=== PATIENT | male | born 1955 | race Caucasian/White ===

== ENCOUNTER 2024-10-02 14:41 | Outpatient (RCR) | payer MEDICARE, SELFPAY | END 2024-10-02 23:59 | disposition home or self-care (01) | LOC: RPT 14:41 | DX: H81.12 Benign paroxysmal vertigo, left ear (principal); Z73.6 Limitation of activities due to disability | CPT/HCPCS: 97112; 97162 ==

== ENCOUNTER 2024-10-04 15:54 | Observation (INO) | payer MEDICARE, SELFPAY ==
[2024-10-04] VITALS (11 sets, daily range): BP systolic 123–165; BP diastolic 70–87; PULSE 70–79; BMI 32.5; BMI 31.5
--- NOTE | 2024-10-04 08:45 | ED.GENMED ---
History of Present Illness
General
Chief Complaint: Dizziness
Source: patient
Exam Limitations: none
Time Seen by Provider: 10/04/24 08:44
Nursing documentation reviewed up to this point in time: agreed with
History of Present Illness
History of Present Illness:
Patient is a 69-year-old male with history of hypertension asthma now who presents to the ER for evaluation. On Tuesday several days ago patient noticed he had room spinning sensation when he was laying down however when he stood up it went away.
He notices more when he was on his left side. He recently moved from [place] and therefore does not have a family doctor. He saw the family practice clinic on Tuesday and diagnosed with vertigo. He was able to get an appointment physical
therapy and saw them on Tuesday, yesterday however they were not able to elicit any vertigo symptoms.
Patient reports this morning he woke up with room spinning sensation at 4 am however also feels generally dizzy. also reports she was concerned because he had vertigo today while just sitting still and not moving.
Patient is not on blood thinners. He denies any recent trauma.
Review of Systems
Review of Systems
Allergies reviewed?: Yes
Other source history: family
All Other Systems: ROS reviewed and negative except as documented in HPI and ROS
Constitutional: Reports no symptoms; Denies fever, fatigue or chills
EENT: Reports no symptoms
Respiratory: Reports no symptoms
Cardiac: Reports no symptoms
ABD/GI: Denies nausea or vomiting
Musculoskeletal: Reports no symptoms
Skin: Reports no symptoms
Neurological: Reports dizzy
Psychiatric: Reports no symptoms
Phy Exam
General Physical Exam
General Presentation: no apparent distress
General age: appears stated age
General Skin: warm and dry
General Habitus: normal
General Mental: alert
General Hydration: appears well hydrated
Eye Exam
Eye Exam: PERRL, EOMI and other (No nystagmus bilaterally)
Eye Exam General: PERRL: bilateral and EOM intact: bilateral
Pupil Exam: Bilateral: round and reactive
Cardiovascular Exam
Cardiovascular Exam: regular rate/rhythm, no murmur and normal peripheral pulses
Pulmonary Exam
Pulmonary Exam: lungs clear and no respiratory distress
Neurological Exam
Neurological Exam: alert and oriented x3
Musculoskeletal Exam
Musculoskeletal Exam: full ROM
Skin Exam
Skin Exam: normal color and warm/dry
Psychiatric Exam
Psychiatric Exam: normal mood/affect
Course
Orders/Labs/Results
Orders:
Orders
10/04/24 08:22
Electrocardiogram (*1) Urgent
Reason for Study: Fatigue / Weakness
EKG- Treatment ONCE
10/04/24 09:01
Cardiac Monitoring- Treatment ONCE
IV Insert/Care/Rem.- Treatment PRN
0.9% Sodium Chloride 1000 ml [Nss] 1,000 ml IV BOLUS
10/04/24 09:04
Complete Blood Count/With Diff Urgent
Comprehensive Metabolic Panel Urgent
10/04/24 09:17
CT Head W/o Iv Contrast Urgent
Comment:
Reason For Exam: vertigo
10/04/24 11:49
MRI Brain [MR Brain Without Contrast] Routine
Comment:
Reason For Exam: vertigo
OK for patient to be off Cardiac Monitoring for MRI: No
Recent pill cam endoscopy?: No
10/04/24 15:31
Echo 2D MMode Color/Doppler Routine
Reason for Study: dizzy
Troponin I Stat
Abnormal Lab Results
10/04/24
09:04
MPV 11.3 H fL
(7.4-10.4)
Eosinophils % 8.9 H %
(0-6)
Glucose 138 H mg/dl
(70-99)
Total Bilirubin 1.6 H mg/dl
(0.2-1.3)
10/04/24 09:04
10/04/24 09:04
Vital Signs
Initial and Last Documented VS:
Initial Vital Signs
Temp Pulse Resp BP Pulse Ox
97.5 F 40 16 165/80 98
10/04/24 08:27 10/04/24 08:27 10/04/24 08:27 10/04/24 08:27 10/04/24 08:27
Last Documented Vital Signs
Temp Pulse Resp BP Pulse Ox
97.5 F 67 9 139/78 96
10/04/24 08:27 10/04/24 15:15 10/04/24 15:15 10/04/24 15:00 10/04/24 15:15
Junior Recruiter consulted with Physician
Junior Recruiter consulted with physician?: Yes
Name of Physician Consulted: David
MDM/Problems Addressed
Differential Diagnosis Includes:
Not limited to dizziness, vertigo, stroke
MDM/Problems Addressed:
Patient is a 69-year-old male with hypertension history presenting with intermittent episodes of vertigo however today felt also a vague dizziness and had vertigo today while sitting still and not moving. Patient did see family practice clinic and
had an outpatient physical therapy from yesterday they could not elicit vertigo at that time. He presents awake alert no acute distress he did not need any medications for vertigo here in the ER. CAT scan with no acute findings CAT scan does
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
Case reviewed with admitting hospitalist who recommended MRI and possible discharge. Case reviewed with neurology DR Albarran who ordered MRI which was neg.
While patient was here he still has felt what he describes as a different type of dizziness with ambulating. He has had frequent PVCs and at times has had episodes of bigeminy. With persistent dizziness would recommend admission. I did review
this with admitting hospitalist. He did receive fluids however despite fluids still feels dizzy.
*Radiology
Radiology exam reviewed: radiology read reviewed
*Pulse Oximetry
Patient hypoxic: no
*EKG
Interpreted by ED Provider?: Yes
Heart Rate: 66
Rate: normal
Rhythm: sinus
Ischemia: non-specific ST changes
*Critical Care Note
Total Time (30-74mins, 75-104mins- exclusive of procedures): Not Applicable
Patient Management
Discussion with other providers: Pulp Drier Firer (neuro DR Albarran )
ED Attending Note
-
Portions of this chart may have been created with voice recognition software.� Occasional wrong word or��sound alike� substitutions may have occurred due to the inherent limitations of voice recognition software.
Discharge Plan
Departure
Patient Disposition: Admit
Date of Disposition: 10/04/24
Time of Disposition: 10:51
Admit to: Med/Surg
Admit to doctor: hospitalist
Presentation/result/management discussed w/ accepting MD/DO: Hospitalist
Patient with high blood pressure during this ER visit?: Yes
Condition: Fair
Covid-19: Not Applicable
Discharge Problem:
Dizziness
Prescriptions:
No Action
polyethylene glycol 3350 [Miralax] 17 gram Powder In Packet
17 g PO DAILY
aspirin 325 mg Tablet
325 mg PO DAILYPRN PRN (Reason: headaches)
pravastatin 40 mg Tablet
40 mg PO QPM
Theragen Tablet
1 tab PO DAILY
amlodipine [Norvasc] 5 mg Tablet
5 mg PO DAILY
ascorbic acid (vitamin C) [Vitamin C] 500 mg Tablet
500 mg PO DAILY
ranitidine HCl 150 mg Tablet
150 mg PO Q48H
albuterol sulfate [ProAir HFA] 90 mcg/actuation Hfa Aerosol Inhaler
2 puff INHALATION R Q6HPRN PRN (Reason: sob)
lisinopril 40 mg Tablet
40 mg PO DAILY
esomeprazole magnesium [Nexium] 20 mg Capsule,Delayed Release(Dr/Ec)
20 mg PO Q48H
alfuzosin 10 mg Tablet Extended Release 24 Hr
10 mg PO QPM
Visbiome 112.5 billion cell Capsule
1 cap PO DAILY
Arnuity Ellipta 100 mcg/actuation Blister With Device
1 inh INHALATION R Q48H
Budesonide 0.5mg/Saline
2 spray intranasal DAILY
Referrals:
Donny Martinez MD, Resident [Family Provider] -
Interventions
Interventions:
*Risk Screen - Suicide Last Done: 10/04/24 08:27
*General Assessment Last Done: 10/04/24 09:01
*Neglect/Abuse Screening Last Done: 10/04/24 08:27
ED- Fall Risk Assessment Last Done: 10/04/24 09:38
*ED COVID-19 Vaccine History Last Done: 10/04/24 09:01
ED- Neurological Assessment Last Done: 10/04/24 10:39
ED- Cardiac Assessment Last Done: 10/04/24 09:38
ED Swallowing Screen Last Done: 10/04/24 09:38
Discharge Date and Time
Print Language: [place]
[2024-10-04] MEDS: NSS 1000 IV (09:03)
[2024-10-04 09:13] LABS: % Basophils 1.2 % (0-2); % Eosinophils 8.9 % (0-6); % Immature Granulocytes 0.2 % (0-0.5); % Lymphocytes 28.7 % (20.5-51.1); % Monocytes 9.3 % (1.7-9.3); % Neutrophils 51.7 % (42.2-75.2); Absolute Basophils 0.1 10^3/uL (0-0.2); Absolute Eosinophils 0.4 10^3/uL (0-0.7); Absolute Lymphocytes 1.4 10^3/uL (1.2-3.4); Absolute Monocytes 0.5 10^3/uL (0.1-0.6); Absolute Neutrophils 2.5 10^3/uL (1.4-6.5); Hematocrit 42.6 % (39.0-52.0); Mean Corp Hgb Conc. 35.2 g/dL (33.0-37.0); Mean Corpuscular Hgb 30.2 pg (27.0-31.0); Mean Corpuscular Volume 85.9 fL (80.0-94.0); Mean Platelet Volume 11.3 fL (7.4-10.4); Nucleated Red Blood Cells % 0 % (-); Platelet Count 186 10^3/uL (130-400); Red Blood Cell Count 4.96 10^6/uL (4.70-6.10); Red Cell Dist. Width 12.8 % (11.5-14.5); White Blood Cell Count 4.8 10^3/uL (4.8-10.8)
[2024-10-04 09:55] LABS: ALT (SGPT) 32 U/L (0-50); AST (SGOT) 31 U/L (17-59); Albumin 4.5 g/dl (3.5-5.0); Alkaline Phosphatase 49 U/L (38-126); Blood Urea Nitrogen 19 mg/dl (9-20); Calcium 9.6 mg/dl (8.4-10.2); Carbon Dioxide 25 mmol/L (22-30); Chloride 105 mmol/L (98-107); Estimated Creatinine Clearance 112 ml/min; Glucose 138 mg/dl (70-99); Potassium 4.5 mmol/L (3.5-5.1); Sodium 138 mmol/L (135-145); Total Bilirubin 1.6 mg/dl (0.2-1.3); Total Protein 6.8 g/dl (6.3-8.2); eGFR > 60.00
--- NOTE | 2024-10-04 11:40 | CON.NEURO ---
Consultation
Order
Date of Consultation: 10/04/24
Requesting Provider: Thuy Huynh
Reason for Consult: dizziness
Neurology Consultation Note.
HPI: This is a 69-year-old man who presented to [facility] on 10/04/2024 with dizziness. According to the patient he developed intermittent vertigo, worse with turning to left on September 30.
He was seen by PT on 10/02/2024
Mr. Jeffery states that he fell backwards on the bed after he got up and developed vertigo in the morning prompting him to seek medical care. No reports nausea, vomiting, clumsiness, dysarthria or dysphagia, motor visual sensory changes, tinnitus or
ear pain..
Patient has a chronic nasal congestion/sinus headache and uses budesonide and aspirin for.
Mr. Jeffery recalls a severe headache and dysarthria that he developed post sinus surgery at the age of 17. He is not sure what was the etiology of the event.
ER VS: 165/80, heart rate�40?, afebrile
EKG: NSR, QTc Int : 408 ms
Labs: Glucose�138, bilirubin�1.6, normal WBCs, platelets.
PDMP:none
CT head wo contrast-left frontal hypodensity, atrophy.
PMH: HTN, DLP, IGT, GERD, BMI 32, BPH, orthostatic hypotension
PSH:TUR sinus surgeries, P, tonsillectomy, bilateral cataract surgery, BL TKA, left foot neuroma resection, left shoulder arthroscopy
SH: , retired, drinks wine, independent in [place].
FH: Father had a stroke at the age of 56,
All: HMG�Co. a reductase inhibitors
ROS:Constitutional: Negative. Negative for chills, fever and unexpected weight change.
HENT: Positive for vertigo
Eyes: Negative. Negative for photophobia, pain and visual disturbance.
Respiratory: Negative for cough, choking and shortness of breath.
Cardiovascular: Negative for chest pain, palpitations and leg swelling.
Gastrointestinal: Negative for abdominal pain and vomiting.
Endocrine: Negative. Negative for cold intolerance.
Musculoskeletal: Negative for back pain, gait problem, neck pain and neck stiffness.
Skin: Negative for rash.
Allergic/Immunologic: Negative. Negative for immunocompromised state.
Neurological: Positive for chronic headache, imbalance
Psychiatric/Behavioral: Negative for behavioral problems, confusion and hallucinations.
General: Well developed. In no acute distress.
Cardio: Regular rate and rhythm without murmur. Extremities are without cyanosis or edema.
Neuro:
Mental Status: Alert, oriented to person, place, and date. Normal attention and recall. Good fund of knowledge. Follows complex requests across the midline. Comprehension, naming, and repetition intact. Immediate and delayed recall 3/3.
Cranial Nerves: . Pupils are equally round, surgical. EOMs full. Visual huitron full to confrontation. No ptosis. No nystagmus. V1-V3 intact to light touch and pinprick bilaterally, symmetric. Face symmetric. Mildly impaired hearing AU. The
palate elevated well. SCMs and traps 5/5. Tongue midline. No dysarthria.
Motor: Normal bulk and tone. No pronator or arm drift. Strength 5/5 throughout. No clonus.
Reflexes: 3+ throughout the upper extremities and knees. Plantar responses flexor bilaterally. Negative clonus bilaterally
Sensory: Normal vibration at the toes
Coordination: No dysmetria or tremor.
Gait: deferred
Bilateral pes cavus and hammertoes
Assessment and Plan:
I. BPPV
II.Left frontal hypodensity. Differential diagnosis includes vascular, post infectious
III. Chronic sinus headache.
-Continue Telemetry monitoring.
-Please obtain orthostatic vital signs
-ASA 81 mg QD
-Brain MRI without april
-CTA head and neck
-Meclizine 25 mg every 8 hours as needed
-PT
-DVT prophylaxis.
I personally reviewed all radiology and labs along with past medical records pertinent to current medical problems. Total time spent in patient care is 60 minutes.
Thank you for allowing us to participate in the care of this patient. We will continue to follow. Please do not hesitate to contact us with any questions or concerns.
Subjective/Objective
Subjective Data
Date of Service: October 04, 2024
Objective Data
Vital Signs
Temp Pulse Resp BP Pulse Ox
36.4 C 66 8 162/80 96
10/04/24 08:27 10/04/24 10:00 10/04/24 10:00 10/04/24 10:00 10/04/24 10:00
Lab Results
10/04/24 09:04
10/04/24 09:04
Sodium 138 mmol/L (135-145) 10/04/24 09:04
Potassium 4.5 mmol/L (3.5-5.1) 10/04/24 09:04
BUN 19 mg/dl (9-20) 10/04/24 09:04
Glucose 138 mg/dl (70-99) H 10/04/24 09:04
Calcium 9.6 mg/dl (8.4-10.2) 10/04/24 09:04
Patient Allergies
rubber, unspecified Allergy (Verified 10/04/24 08:32)
Unknown
Xgektzt-XIM-PcN Reductase Inhibitor Allergy (Verified 10/04/24 08:32)
Unknown
Medications
-
Home Medications
�Medication �Instructions �Recorded
Budesonide 0.5mg/Saline 2 spray intranasal DAILY 10/04/24
Lactobac no.2-Bifidobac no.1-S. 1 cap PO DAILY 10/04/24
thermo 112.5 billion cell capsule
(Visbiome)
albuterol sulfate 90 mcg/actuation 2 puff inhalation R Q6HPRN PRN sob 10/04/24
aerosol inhaler
alfuzosin 10 mg tablet,extended 10 mg PO QPM 10/04/24
release 24 hr
amlodipine 5 mg tablet (Norvasc) 5 mg PO DAILY 10/04/24
ascorbic acid (vitamin C) 500 mg 500 mg PO DAILY 10/04/24
tablet (Vitamin C)
aspirin 325 mg tablet 325 mg PO DAILYPRN PRN headaches 10/04/24
esomeprazole magnesium 20 mg 20 mg PO Q48H 10/04/24
capsule,delayed release (Nexium)
fluticasone furoate 100 1 inh inhalation R Q48H 10/04/24
mcg/actuation blister powder for
inhalation (Arnuity Ellipta)
lisinopril 40 mg tablet 40 mg PO DAILY 10/04/24
polyethylene glycol 3350 17 gram 17 g PO DAILY 10/04/24
oral powder packet (Miralax)
pravastatin 40 mg tablet 40 mg PO QPM 10/04/24
ranitidine HCl 150 mg tablet 150 mg PO Q48H 10/04/24
therapeutic multivitamin 1 tab PO DAILY 10/04/24
Vital Signs and Labs
-
Vital Signs and Labs:
Vital Signs
Temp Pulse Resp BP Pulse Ox
36.4 C 66 13 162/80 91
10/04/24 08:27 10/04/24 12:15 10/04/24 12:15 10/04/24 10:00 10/04/24 12:15
Lab Results
10/04/24 09:04
10/04/24 09:04
Sodium 138 mmol/L (135-145) 10/04/24 09:04
Potassium 4.5 mmol/L (3.5-5.1) 10/04/24 09:04
BUN 19 mg/dl (9-20) 10/04/24 09:04
Glucose 138 mg/dl (70-99) H 10/04/24 09:04
Calcium 9.6 mg/dl (8.4-10.2) 10/04/24 09:04
Home Medications
-
Home Medications
Budesonide 0.5mg/Saline 2 spray intranasal DAILY 10/04/24
Lactobac no.2-Bifidobac no.1-S. thermo 112.5 billion cell capsule (Visbiome) 1 cap PO DAILY 10/04/24
albuterol sulfate 90 mcg/actuation aerosol inhaler 2 puff inhalation R Q6HPRN PRN sob 10/04/24
alfuzosin 10 mg tablet,extended release 24 hr 10 mg PO QPM 10/04/24
amlodipine 5 mg tablet (Norvasc) 5 mg PO DAILY 10/04/24
ascorbic acid (vitamin C) 500 mg tablet (Vitamin C) 500 mg PO DAILY 10/04/24
aspirin 325 mg tablet 325 mg PO DAILYPRN PRN headaches 10/04/24
esomeprazole magnesium 20 mg capsule,delayed release (Nexium) 20 mg PO Q48H 10/04/24
fluticasone furoate 100 mcg/actuation blister powder for inhalation (Arnuity Ellipta) 1 inh inhalation R Q48H 10/04/24
lisinopril 40 mg tablet 40 mg PO DAILY 10/04/24
polyethylene glycol 3350 17 gram oral powder packet (Miralax) 17 g PO DAILY 10/04/24
pravastatin 40 mg tablet 40 mg PO QPM 10/04/24
ranitidine HCl 150 mg tablet 150 mg PO Q48H 10/04/24
therapeutic multivitamin 1 tab PO DAILY 10/04/24
--- NOTE | 2024-10-04 15:13 | HPS.HSE ---
Family Physician
-
Family Physician: Donny Martinez MD, Resident
Chief Complaint
-
vertigo
History of Present Illness
69-year-old man with PMH fot HTN, CVA, HLD,GERD, asthma who presented with dizzy and vertigo. he stated the room was spinning. he was evaluated by [facility] on Tuesday. he was asked to follow up with PT. HE saw PT on Tuesday.all workup
were negative. he felt fine on Tuesday and Tuesday. today he walk with dizzy and vertigo. he felt like the room was flipping. patient was off balance. he was unsteady on his feet. Patient complained of slight frontal headache. Denies any
syncopal episode patient denied any fever, chills, chest pain, short of breath. Patient denied any abdominal pain, nausea, vomiting or diarrhea. Patient denied dysuria materia.
Head CT and MRI negative. Admitting for further management
Medical History
Past Medical History
Past Medical History: Reports Other
Additional Past Medical History:
Hypertension
Hyperlipidemia
Asthma
BPH
Chronic sinus congestion
Cataracts
Low back pain
Past Surgical History: Reports Other
Additional Past Surgical History:
Surgical resection of prostate
Left shoulder surgery
another knee replacement
Bilateral catheter removal
Removal of neuroma from left foot y
Social History
Tobacco: Non-smoker
Alcohol: Occasional
Drug: None
Personal:
Living: With Family
Family History
Family History: Not pertinent
Allergies / Home Medications
Allergies reflects when Allergies were last updated in [facility].
Home Medications with original date entered in [facility]
Allergy/Medication List:
Allergies
Allergy/AdvReac Type Severity Reaction Status Date / Time
rubber, unspecified Allergy Unknown Verified 10/04/24 08:32
Gysioyx-MSV-MfA Reductase Allergy Unknown Verified 10/04/24 08:32
Inhibitor
Home Medications
Budesonide 0.5mg/Saline 2 spray intranasal DAILY 10/04/24
Lactobac no.2-Bifidobac no.1-S. thermo 112.5 billion cell capsule (Visbiome) 1 cap PO DAILY 10/04/24
albuterol sulfate 90 mcg/actuation aerosol inhaler 2 puff inhalation R Q6HPRN PRN sob 10/04/24
alfuzosin 10 mg tablet,extended release 24 hr 10 mg PO QPM 10/04/24
amlodipine 5 mg tablet (Norvasc) 5 mg PO DAILY 10/04/24
ascorbic acid (vitamin C) 500 mg tablet (Vitamin C) 500 mg PO DAILY 10/04/24
aspirin 325 mg tablet 325 mg PO DAILYPRN PRN headaches 10/04/24
esomeprazole magnesium 20 mg capsule,delayed release (Nexium) 20 mg PO Q48H 10/04/24
fluticasone furoate 100 mcg/actuation blister powder for inhalation (Arnuity Ellipta) 1 inh inhalation R Q48H 10/04/24
lisinopril 40 mg tablet 40 mg PO DAILY 10/04/24
polyethylene glycol 3350 17 gram oral powder packet (Miralax) 17 g PO DAILY 10/04/24
pravastatin 40 mg tablet 40 mg PO QPM 10/04/24
ranitidine HCl 150 mg tablet 150 mg PO Q48H 10/04/24
therapeutic multivitamin 1 tab PO DAILY 10/04/24
Review of Systems
-
Constitutional: Reports No Symptoms
EENT: Reports No Symptoms
Respiratory: Reports No Symptoms
Cardiac: Reports No Symptoms
Abdomen/GI: Reports No Symptoms
: Reports No Symptoms
Musculoskeletal: Reports No Symptoms
Skin: Reports No Symptoms
Neurological: Reports Dizzy
Endocrine: Reports No Symptoms
Hematologic/Lymphatic: Reports No Symptoms
Psych: Reports No Symptoms
Physical Exam
Vital Signs
Vital Signs
Temp Pulse Resp BP Pulse Ox
97.5 F 66 13 162/80 91
10/04/24 08:27 10/04/24 12:15 10/04/24 12:15 10/04/24 10:00 10/04/24 12:15
Physical Exam
General: Well Developed, Well Nourished and No Apparent Distress
HEENT: NormoCephalic, Moist mucous membranes and Atraumatic
Respiratory: Clear
Cardiac: S1/S2 and Regular Rhythm; No Murmur or Rub
GI: Soft, Non Tender, Non Distended and Normal Bowel Sounds; No Organomegaly
Rectal: Deferred by Provider
Musculoskeletal: No Clubbing, No Cyanosis and No Edema
Skin: No Rash
Neuro: AO x 3 and Nonfocal/grossly intact
Psych: Calm
Laboratory Results
-
10/04/24 09:04
10/04/24 09:04
Laboratory Results
Total Bilirubin 1.6 mg/dl (0.2-1.3) H 10/04/24 09:04
AST 31 U/L (17-59) 10/04/24 09:04
ALT 32 U/L (0-50) 10/04/24 09:04
Alkaline Phosphatase 49 U/L (38-126) 10/04/24 09:04
Data Reviewed
-
Diagnostic Radiology: Report Reviewed by me
CT Scan: Report Reviewed by me
Lab Data: Labs Reviewed by me
Impression/Plan
-
vertigo/dizzy
-PT/OT
-meclizine prn for vertigo
-brain MRI with No acute intracranial abnormality noted.
-CT with likely small old left fontal lobe infract.
-EKG with sinus rhythm with PVCs
-Will obtain echo and troponin
-Monitor orthostatics
# History of asthma
-Patient not in acute exacerbation
-Albuterol continued
-Breo continued
# BPH
-Alfuzosin continued
# Essential hypertension
-Norvasc, lisinopril continued with hold parameters
# GERD
-PPI continued
# Hyperlipidemia
-Statin continued
#DVT prophylaxis
-Lovenox subcu
# CODE STATUS
-Full code
--- NOTE | 2024-10-04 15:22 | W.PN.UPDATE ---
Update Note
Progress Note Update
This is an addendum to H&P written by SEED YEAST OPERATOR Lily Garner
I saw and examined the patient.
The SEED YEAST OPERATOR's note was reviewed and I agree with the note.
Comment:
Mr. Soren Jeffery is a 69 yo man with hx asthma, essential HTN, [facility] and diagnosed with BPPV presents to the ER this morning with return of significant Vertigo symptoms. Patient was seen by PT yesterday and did not
have symptoms of Vertigo.
Triage vitals significant for hypertension, labs essentially unremarkable.
EKG: sinus rhythm with PVC's
Head CT
IMPRESSION:
Likely small old left frontal lobe infarct.
No acute intracranial abnormality
MRI
IMPRESSION:
No acute intracranial abnormality noted.
Vertigo
BPPV
-MRI shows no stroke.
-suspect current dizziness is related to lingering symptoms of Vertigo. Patient and do not feel safe going home this evening.
-admit to observation for Vestibular PT/OT
-Meclizine PRN
Frequent PVC's
-doubt related to current symptoms of dizziness
-will obtain TTE and obtain Troponin
-refer to cardiology on discharge
Essential HTN
HLD
GERD
Asthma
-continue home medication regimen
[2024-10-04 16:10] LABS: Troponin I 0.021 ng/ml
[2024-10-04] MEDS: LOVENOX 40 MG SC (18:36)
[2024-10-04] MEDS: FLOMAX 0.4 MG PO (18:36)
--- NOTE | 2024-10-04 18:40 | PTCARENOTE ---
pt presents from ED via stretcher. pt is AAO*3, Vss, room air. pt c/o slight dizziness. Ortho BP done. pt denies any pain. pt is oriented to the room. call quarles within the reach. plan of care ongoing.
[2024-10-04] MEDS: FLOVENT 44 MCG INHALER 2 PUFF INH (19:40)
[2024-10-04] MEDS: ProAIR HFA INHALER 2 PUFF INH (19:42)
[2024-10-04] MEDS: PEPCID 20 MG PO (20:32)
[2024-10-04] MEDS: ANTIVERT 25 MG PO (20:32)
[2024-10-04] MEDS: PRAVACHOL 40 MG PO (20:34)
[2024-10-05] VITALS (8 sets, daily range): BP systolic 115–159; BP diastolic 65–100; PULSE 40–81; O2SAT 96
[2024-10-05] MEDS: FLOVENT 44 MCG INHALER 2 PUFF INH (08:26)
[2024-10-05] MEDS: NORVASC 5 MG PO (08:50)
[2024-10-05] MEDS: ZESTRIL 40 MG PO (08:50)
[2024-10-05] MEDS: MIRALAX 17 GRAMS PO (08:51)
--- NOTE | 2024-10-05 14:54 | W.PN.HOSP.TC ---
Addendum entered and electronically signed by Garth Earl MD 10/05/24 22:34:
Attending Addendum:
I saw and evaluated the patient. I reviewed the resident�s note and agree with findings and plan as documented in the resident�s note. Sub: no further vertigo/dizziness. Full 12 point ROS reviewed and negative except as documented Exam: Vitals
reviewed in chart GEN-NAD heart RRR lungs clear abd soft LE no edema Neuro AAO x 3 MS 5/ no cerebellar sxs sensation intact neg nystagmus
#vertigo/BPPV
-PT/OT
-meclizine prn for vertigo
-brain MRI with No acute intracranial abnormality noted.
-EKG with sinus rhythm with PVCs
-echo- Normal biventricular size and systolic function without regional wall motion
abnormality. Trace aortic regurgitation.
-orthostatics- neg
- f/u as OP
# History of asthma
-Patient not in acute exacerbation
-Albuterol continued
-Breo continued
# BPH
-Alfuzosin continued
# Essential hypertension
-Norvasc, lisinopril continued with hold parameters
# GERD
-PPI continued
# Hyperlipidemia
-Statin continued
#DVT prophylaxis
-Lovenox subcu
# CODE STATUS
-Full code
Time spent coordinating care, DC planning, review of DC plan of care with resident, transition of care, review of records, med rec/scripts sent electronically, consults, notes, d/w consultants, nursing, and CM� 34 mins
Original Note:
Today's Communication/Plan
-
Patient has been feeling well. Has been stable and without symptoms and okay to be discharged today.
Assessment / Plan
Assessment / Plan
Assessment:
69 year old male with a past medical history of HTN, CVA, HLD, GERD, and asthma presented to the ED on 10/04/2024 for recent dizziness and vertigo. Patient since being admitted has not had any bouts of dizziness or vertigo after the ones he had
while getting his imaging done. Currently reports no symptoms and is vertigo free.
Plan:
# Vertigo/Dizziness
-MRI and CT showed no acute abnormalities
-Echo- normal size and function
-Troponins negative
-Meclizine PRN for vertigo
-PT/OT determined negative BPPV and neuritis testing. No reproduction of symptoms or nystagmus
-Could be related to BPPV or his medications
-Will follow up outpatient with PCP for further workup
# History of asthma
-Patient not in acute exacerbation
-Patient's home inhalers continued
# BPH
-Alfuzosin continued
-Says he halved his dose at home
# Essential hypertension
-Continued home medications
# GERD
-PPI continued
# Hyperlipidemia
-Statin continued
#DVT prophylaxis
-Lovenox subcu
# CODE STATUS
-Full code
Anticipated Discharge: Today
Subjective/Interval History
-
Date of Service: October 05, 2024
Patient has been feeling well and has had no syncope/vertigo since getting his CT scan. Has been feeling well and reports no complaints.
Objective Data
-
Vital Signs:
Vital Signs
Temp Pulse Resp BP Pulse Ox
98 F 65 18 142/73 97
10/05/24 11:08 10/05/24 11:08 10/05/24 11:08 10/05/24 11:08 10/05/24 11:08
I&O
10/04/24 10/05/24 10/06/24
06:59 06:59 06:59
Intake Total 480 / 480
Balance 480 / 480
Review of Systems
-
History Source: Patient
Constitutional: Reports No Symptoms
EENT: Reports No Symptoms Reported
Respiratory: Denies Cough, Trouble Breathing or Wheezing
Cardiac: Denies Chest Pain, Diaphoresis or Syncope
Abdomen/GI: Denies Abdominal Pain, Nausea, Vomiting or Constipated
Genitourinary: Reports No Symptoms
Musculoskeletal: Reports No Symptoms
Skin: Reports No Symptoms
Neuro: Reports No Symptoms
Endocrine: Reports No Symptoms
Allergy / Immunology: Reports No Symptoms
Physical Exam
-
General: Well Developed, Well Nourished, No Apparent Distress and Comfortable
HEENT: Normocephalic and Atraumatic
Respiratory: Clear to Auscultation and Non Labored Respirations
Cardiac: Regular Rhythm and S1/S2
GI: Soft, Nontender and Nondistended
Skin: Warm and Dry
Neuro: Awake, Alert, Oriented, AO x 3, No Motor Deficits and No Sensory Deficits
Psych: Calm
Data Reviewed
-
CT Scan: Report Reviewed by me, Discussed with Physician and Discussed with Patient
MRI: Report Reviewed by me, Discussed with Physician and Discussed with Patient
Medical Tests (Nuc Med, Echo etc): Report Reviewed by me, Discussed with Physician and Discussed with Patient
Labs: Labs Reviewed by me, Discussed with Physician and Discussed with Patient
--- NOTE | 2024-10-05 15:59 | CM ---
Addendum entered by Keiry Cleveland 10/05/24 16:04:
Pt's will provide transport home at discharge.
Original Note:
CM met with Soren to complete IA. He lives with his in an apartment with elevator access. [employer] he reports being (I) amb and adls.
[facility] Notice reviewed and signed and placed in chart; patient provided with a copy of the notice so he can review again once he is home.
Plan: Discharge to home with recommendation for outpatient vestibular therapy.
PCP: Donny Martinez
Pharmacy: [facility] in [facility]
--- NOTE | 2024-10-05 17:17 | W.DCSUMMARY ---
Addendum entered and electronically signed by Garth Earl MD 10/05/24 22:36:
Read, reviewed, and agree. See same day progress note for additional details. F/U [facility]- continuity.
Mendez Earl MD
Original Note:
Documented by User: Donny Martinez MD, Resident 10/05/24 17:35
Discharge Summary
Discharge Data
Date of Admission: 10/04/24
Date of Discharge: 10/05/24
-
Pending Results: No
Hospital Course
Discharging Physician : Dr. Garth Earl, Dr. Donny Martinez
Disposition : Home
Primary care physician : Dr. Donny Martinez
Principal Discharge diagnosis : Vertigo
Chronic Discharge diagnosis : Asthma, BPH, Hypertension, GERD, Hyperlipidemia
Hospital Course :
69 year old male with a history of hypertension, CVA, hyperlipidemia, GERD, and asthma presented to the [facility] ED on 10/04/2024 with recent history of dizziness and vertigo. Patient was evaluated with a CT scan and MRI in the ED which showed no
acute findings. During the scan, patient got some vertigo and dizziness while lying down for the scan. Patient was found to have PVCs on ECG and was admitted due to his dizziness. Patient stayed over night and his symptoms improved while in the
hospital. Patient did not have any symptoms of dizziness or vertigo after the one he had while sitting down for his CT scan. Patient's troponin levels were negative and his echocardiogram showed normal size and function of his heart with some trace
aortic regurgitation. Patient's bradycardia and dizziness/vertigo were thought to be most likely due to his current medication. Patient was advised to follow up with his PCP for further management of his supposed medication induced vertigo.
Important imaging findings :
CT Head W/o Iv Contrast (10/04/2024)- Likely small old left frontal lobe infarct. No acute intracranial abnormality.
MR Brain Without Contrast (10/04/2024)- No acute intracranial abnormality noted.
Electrocardiogram (10/04/2024)- SINUS RHYTHM WITH FREQUENT PREMATURE VENTRICULAR COMPLEXES. NONSPECIFIC T WAVE ABNORMALITY. ABNORMAL ECG. NO PREVIOUS ECGS AVAILABLE
Procedure findings :
Echocardiogram (10/05/2024)- Normal biventricular size and systolic function without regional wall motion abnormality. Trace aortic regurgitation
Discharge Plan
-
Patient Disposition: Home (Routine Discharge)
Discharge Diagnosis/Procedures: Vertigo
Condition: Fair
Diet: Low Cholesterol
Activity: As tolerated
Driving Restrictions: No driving for 1 week
Bathing Restrictions: None
Activity Restrictions/Additional Instructions:
Follow up with PCP in 1 week to go over medications and cause of vertigo
Instructions: Vertigo (a type of dizziness), Dealing with Dizziness from the Drugs You Take
Referrals:
Donny Martinez MD, Resident [Family Provider] -
Prescriptions:
New
meclizine 25 mg Tablet
25 mg PO Q8HPRN PRN (Reason: dizzy) 30 Days Qty: 30 0RF
Continued
polyethylene glycol 3350 [Miralax] 17 gram Powder In Packet
17 g PO DAILY
aspirin 325 mg Tablet
325 mg PO DAILYPRN PRN (Reason: headaches)
pravastatin 40 mg Tablet
40 mg PO QPM
therapeutic multivitamin Tablet
1 tab PO DAILY
amlodipine [Norvasc] 5 mg Tablet
5 mg PO DAILY
ascorbic acid (vitamin C) [Vitamin C] 500 mg Tablet
500 mg PO DAILY
ranitidine HCl 150 mg Tablet
150 mg PO Q48H
albuterol sulfate 90 mcg/actuation Hfa Aerosol Inhaler
2 puff INHALATION R Q6HPRN PRN (Reason: sob)
lisinopril 40 mg Tablet
40 mg PO DAILY
esomeprazole magnesium [Nexium] 20 mg Capsule,Delayed Release(Dr/Ec)
20 mg PO Q48H
alfuzosin 10 mg Tablet Extended Release 24 Hr
10 mg PO QPM
Visbiome 112.5 billion cell Capsule
1 cap PO DAILY
Arnuity Ellipta 100 mcg/actuation Blister With Device
1 inh INHALATION R Q48H
Budesonide 0.5mg/Saline
2 spray intranasal DAILY
Discharge Orders:
Discharge Patient (As Directed); Ordered 10/05/24
Ordered By: Donny Martinez
Discharge Date and Time
Discharge Date/Time: 10/05/24 17:39
Print Language: CHINESE

Documented by User: Garth Earl MD 10/05/24 22:31
Discharge Summary
Discharge Data
Date of Admission: 10/04/24
Date of Discharge: 10/05/24
Discharge Plan
-
Patient Disposition: Home (Routine Discharge)
Discharge Diagnosis/Procedures: Vertigo
Condition: Fair
Diet: Low Cholesterol
Activity: As tolerated
Driving Restrictions: No driving for 1 week
Bathing Restrictions: None
Activity Restrictions/Additional Instructions:
Follow up with PCP in 1 week to go over medications and cause of vertigo
Instructions: Vertigo (a type of dizziness), Dealing with Dizziness from the Drugs You Take
Referrals:
Donny Martinez MD, Resident [Family Provider] -
Prescriptions:
New
meclizine 25 mg Tablet
25 mg PO Q8HPRN PRN (Reason: dizzy) 30 Days Qty: 30 0RF
Continued
polyethylene glycol 3350 [Miralax] 17 gram Powder In Packet
17 g PO DAILY
aspirin 325 mg Tablet
325 mg PO DAILYPRN PRN (Reason: headaches)
pravastatin 40 mg Tablet
40 mg PO QPM
therapeutic multivitamin Tablet
1 tab PO DAILY
amlodipine [Norvasc] 5 mg Tablet
5 mg PO DAILY
ascorbic acid (vitamin C) [Vitamin C] 500 mg Tablet
500 mg PO DAILY
ranitidine HCl 150 mg Tablet
150 mg PO Q48H
albuterol sulfate 90 mcg/actuation Hfa Aerosol Inhaler
2 puff INHALATION R Q6HPRN PRN (Reason: sob)
lisinopril 40 mg Tablet
40 mg PO DAILY
esomeprazole magnesium [Nexium] 20 mg Capsule,Delayed Release(Dr/Ec)
20 mg PO Q48H
alfuzosin 10 mg Tablet Extended Release 24 Hr
10 mg PO QPM
Visbiome 112.5 billion cell Capsule
1 cap PO DAILY
Arnuity Ellipta 100 mcg/actuation Blister With Device
1 inh INHALATION R Q48H
Budesonide 0.5mg/Saline
2 spray intranasal DAILY
Discharge Orders:
Discharge Patient (As Directed); Ordered 10/05/24
Ordered By: Donny Martinez
Discharge Date and Time
Discharge Date/Time: 10/05/24 17:39
Print Language: CHINESE
== END 2024-10-05 17:39 | disposition home or self-care (01) ==
LOC: 4 EAST ACU 15:54
PROVIDERS: Nurse Practitioner; Registered Nurse; ADMITTING PHYSICIAN Student in an Organized Health Care Education/Training Program; ATTENDING PHYSICIAN Family Medicine; EMERGENCY PHYSICIAN Emergency Medicine; OTHER PHYSICIAN Psychiatry & Neurology Neurology
DX: R42 Dizziness and giddiness (principal); I10 Essential (primary) hypertension; J45.909 Unspecified asthma, uncomplicated; R53.83 Other fatigue; R53.1 Weakness; R09.81 Nasal congestion; N40.0 Benign prostatic hyperplasia without lower urinary tract symptoms; K21.9 Gastro-esophageal reflux disease without esophagitis; I49.3 Ventricular premature depolarization; G93.89 Other specified disorders of brain; E78.5 Hyperlipidemia, unspecified; R26.81 Unsteadiness on feet; Z86.73 Personal history of transient ischemic attack (TIA), and cerebral infarction without residual deficits; Z88.8 Allergy status to other drugs, medicaments and biological substances; Z82.3 Family history of stroke; Z86.018 Personal history of other benign neoplasm; Z96.653 Presence of artificial knee joint, bilateral
CPT/HCPCS: 70450; 70551; 80053; 84484; 85025; 93005; 93306; 94640; 96360; 97112; 97162; 97165; 99285; G0378

== ENCOUNTER → 2024-11-19 09:09 | Outpatient (REF) | payer MEDICARE, SELFPAY | LOC: RCS 09:09 | DX: R00.1 Bradycardia, unspecified (principal) | CPT/HCPCS: 93225; 93226 ==

== ENCOUNTER → 2025-01-28 17:20 | Outpatient (REF) | payer MEDICARE, SELFPAY | LOC: MRI 17:20 | DX: R51.9 Headache, unspecified (principal) | CPT/HCPCS: 70553; A9575 ==

== ENCOUNTER → 2025-03-07 13:38 | Outpatient (REF) | payer MEDICARE, SELFPAY | LOC: MRI 13:38 | PROVIDERS: ATTENDING PHYSICIAN Nurse Practitioner | DX: G44.52 New daily persistent headache (NDPH) (principal); R42 Dizziness and giddiness; R29.818 Other symptoms and signs involving the nervous system | CPT/HCPCS: 70544 ==

== ENCOUNTER → 2025-04-24 09:06 | Outpatient (REF) | payer MEDICARE, SELFPAY | LOC: MRI 3T 09:06 | PROVIDERS: ATTENDING PHYSICIAN Nurse Practitioner | DX: G08 Intracranial and intraspinal phlebitis and thrombophlebitis (principal) | CPT/HCPCS: 70544 ==

== ENCOUNTER → 2025-06-05 09:06 | Outpatient (REF) | payer MEDICARE, SELFPAY | LOC: RCS 09:06 | PROVIDERS: ATTENDING PHYSICIAN Student in an Organized Health Care Education/Training Program | DX: I49.3 Ventricular premature depolarization (principal) | CPT/HCPCS: 93225; 93226 ==